=== PATIENT | female | born 1965 | race Caucasian/White ===

== ENCOUNTER → 2024-03-17 11:14 | Outpatient (REF) | payer OTHER, SELFPAY | LOC: HWWDC 11:14 | PROVIDERS: ATTENDING PHYSICIAN Family Medicine | DX: Z12.31 Encounter for screening mammogram for malignant neoplasm of breast (principal) | CPT/HCPCS: 77063; 77067 ==

== ENCOUNTER 2024-09-22 05:49 | Emergency (ER) | payer OTHER, SELFPAY ==
[2024-09-22 05:51] VITALS: BP 143/98
[2024-09-22] MEDS: DILAUDID 0.5 MG IV (06:29)
[2024-09-22] MEDS: VALIUM INJECTION 5 MG IV (06:35)
--- NOTE | 2024-09-22 06:49 | ED.GENMED ---
History of Present Illness
General
Chief Complaint: Back Pain
Source: patient and spouse
Exam Limitations: none
Time Seen by Provider: 09/22/24 06:18
Nursing documentation reviewed up to this point in time: agreed with
History of Present Illness
History of Present Illness:
The patient is a 59-year-old female who comes in with complaints of severe spasming in her left upper back. Patient reports that she experienced it in the past but it was brief and went away. Patient reports she has been dealing with this for 1
week and cannot sleep due to the pain. Patient is pacing around the ED screaming in pain. She denies cough and shortness of breath. 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
Patient reports she has been taking Tylenol, tramadol and prednisone without relief. Patient reports it feels like severe muscle spasm
Past History
Past History
ED Past Medical History: None
ED Past Surgical History: None
Social History
Tobacco: Non-smoker
Alcohol: Other
Drug: None
Personal:
Living: with family
Employment: Other
Family History
Family History: Other
Review of Systems
Review of Systems
Allergies reviewed?: Yes
All Other Systems: ROS reviewed and negative except as documented in HPI and ROS
Constitutional: Reports no symptoms
EENT: Reports no symptoms
Respiratory: Reports no symptoms
Cardiac: Reports no symptoms
ABD/GI: Reports no symptoms
: Reports no symptoms
Musculoskeletal: Reports muscle pain and back pain
Neurological: Reports no symptoms
Endocrine: Reports no symptoms
Hematologic/Lymphatic: Reports no symptoms
Psychiatric: Reports no symptoms
Phy Exam
Physical Exam
Physical Exam:
Physical Exam
General: Patient is pacing around room, standing and holding her left upper back, screaming out in pain
Neck: supple. no meningeal signs. normal psoterior pharynx
Heart: s1/s2 regular rate and rhythm, no murmur. equal radial pulses.
Lungs: no acute respiratory distress. clear bilaterally. No vertebral spine tenderness.
Abdomen: normal bowel sounds. not tender. no CVAT
Neuro: alert and oriented. no focal neurological deficits
Skin: no rash
Psychiatric: well kept. interactive and cooperative
Extremities: no edema. no calf tenderness. negative homans. good distal pulses
Course
Orders/Labs/Results
Orders:
Orders
09/22/24 06:00
Complete Blood Count/With Diff Urgent
Comprehensive Metabolic Panel Urgent
Lipase Urgent
09/22/24 06:23
diazePAM [Valium Injection] 5 mg IV NOW STA
09/22/24 06:24
HYDROmorphone [Dilaudid] 0.5 mg IV NOW STA
09/22/24 06:26
CT Chest PE Study Urgent
Comment:
Reason For Exam: severe L scapular pain
09/22/24 08:02
Diazepam [Valium] 5 mg PO NOW STA
Ketorolac [Toradol] 30 mg IV NOW STA
09/22/24 09:35
Oxycodone [Roxicodone] 5 mg PO NOW STA
Abnormal Lab Results
09/22/24
06:00
WBC 11.9 H 10^3/uL
(4.8-10.8)
MCH 31.7 H pg
(27.0-31.0)
MPV 10.8 H fL
(7.4-10.4)
Absolute Lymphs (auto) 4.3 H 10^3/uL
(1.2-3.4)
Absolute Monos (auto) 1.0 H 10^3/uL
(0.1-0.6)
Glucose 108 H mg/dl
(70-99)
Albumin 5.4 H g/dl
(3.5-5.0)
09/22/24 06:00
09/22/24 06:00
Vital Signs
Initial and Last Documented VS:
Initial Vital Signs
Temp Pulse Resp BP Pulse Ox
97.4 F 70 24 143/98 98
09/22/24 05:51 09/22/24 05:51 09/22/24 05:51 09/22/24 05:51 09/22/24 05:51
Last Documented Vital Signs
Temp Pulse Resp BP Pulse Ox
97.4 F 84 16 105/63 100
09/22/24 05:51 09/22/24 12:25 09/22/24 12:25 09/22/24 12:25 09/22/24 12:25
MDM/Problems Addressed
Differential Diagnosis Includes:
Muscle spasm, aortic dissection, PE, pneumonia
MDM/Problems Addressed:
Patient presents with acute severe left upper back pain
Acute Exacerbation and/or Progression of Chronic Illness:
Patient is acutely hypertensive, likely due to pain
Acute Exacerbation and/or Progression of Chronic Illness: HTN
*Radiology
Radiology exam reviewed: radiology read reviewed
*Pulse Oximetry
Patient hypoxic: no
*Critical Care Note
Total Time (30-74mins, 75-104mins- exclusive of procedures): Not Applicable
Data Reviewed
Source: patient
Patient Management
Social determinants of health affecting care: Living situation and Strong social support
Escalation/DeEscalation of care consider admission/obs:
Patient still feels moderate discomfort but is able to get up and walk around. Patient requesting prescription for oxycodone and Valium. I told patient we will give them to her for a few days. Patient also encouraged to use Motrin.
ED Attending Note
-
Portions of this chart may have been created with voice recognition software.� Occasional wrong word or��sound alike� substitutions may have occurred due to the inherent limitations of voice recognition software.
Discharge Plan
Departure
Patient Disposition: Home (Routine Discharge)
Date of Disposition: 09/22/24
Time of Disposition: 12:06
Patient with high blood pressure during this ER visit?: No
Condition: Good
Covid-19: Not Applicable
Discharge Problem:
Upper back pain on left side
Instructions: Upper Back Pain (DC)
Prescriptions:
New
oxycodone 5 mg tablet
5 mg PO TID PRN (Reason: Pain) Qty: 10 0RF
diazepam [Valium] 5 mg tablet
5 mg PO BID PRN (Reason: muscle spasm) Qty: 12 0RF
No Action
silver sulfadiazine [SSD] 400 GRAM cream
1 applic topical DAILY Qty: 1 0RF
oxycodone-acetaminophen 5 MG/325 MG tablet
1 tab PO Q4HPRN PRN (Reason: pain) Qty: 12 0RF
Referrals:
Wilmer Mayen MD [Active] - (Call today for next open appointment)
Alison Ortiz MD [Family Provider] -
Activity Restrictions/Additional Instructions:
Take 600 mg of Advil/Motrin with food every 6-8 hours for pain. If the pain becomes severe, you can also take the Valium and oxycodone along with the Advil. Please do not drink alcohol or drive while using the Valium and oxycodone.
Interventions
Interventions:
*Risk Screen - Suicide Last Done: 09/22/24 05:56
*General Assessment Last Done: 09/22/24 05:56
*Neglect/Abuse Screening Last Done: 09/22/24 05:56
ED- Fall Risk Assessment Last Done: 09/22/24 06:36
*ED COVID-19 Vaccine History Last Done: 09/22/24 05:55
*Nursing Disposition Last Done: 09/22/24 12:25
ED-Musculoskeletal Assessment Last Done: 09/22/24 06:36
Discharge Date and Time
Discharge Date/Time: 09/22/24 12:30
Print Language: NEPALESE
[2024-09-22 07:08] LABS: % Basophils 0.6 % (0-2); % Eosinophils 1.1 % (0-6); % Immature Granulocytes 0.3 % (0-0.5); % Lymphocytes 36.3 % (20.5-51.1); % Monocytes 8.5 % (1.7-9.3); % Neutrophils 53.2 % (42.2-75.2); Absolute Basophils 0.1 10^3/uL (0-0.2); Absolute Eosinophils 0.1 10^3/uL (0-0.7); Absolute Lymphocytes 4.3 10^3/uL (1.2-3.4); Absolute Neutrophils 6.3 10^3/uL (1.4-6.5); Hematocrit 43.5 % (37.0-47.0); Hemoglobin 14.7 g/dL (12.0-16.0); Mean Corp Hgb Conc. 33.8 g/dL (33.0-37.0); Mean Corpuscular Hgb 31.7 pg (27.0-31.0); Mean Platelet Volume 10.8 fL (7.4-10.4); Nucleated Red Blood Cells % 0 %; Platelet Count 300 10^3/uL (130-400); Red Blood Cell Count 4.63 10^6/uL (4.20-5.40); Red Cell Dist. Width 11.9 % (11.5-14.5); White Blood Cell Count 11.9 10^3/uL (4.8-10.8)
[2024-09-22 07:22] LABS: ALT (SGPT) 27 U/L (0-35); AST (SGOT) 27 U/L (14-36); Albumin 5.4 g/dl (3.5-5.0); Alkaline Phosphatase 74 U/L (38-126); Blood Urea Nitrogen 15 mg/dl (7-17); Calcium 9.6 mg/dl (8.4-10.2); Carbon Dioxide 25 mmol/L (22-30); Chloride 98 mmol/L (98-107); Glucose 108 mg/dl (70-99); Lipase 80 U/L (23-300); Potassium 4.3 mmol/L (3.5-5.1); Sodium 137 mmol/L (135-145); Total Bilirubin 0.5 mg/dl (0.2-1.3); Total Protein 7.6 g/dl (6.3-8.2); eGFR > 60.00
[2024-09-22] MEDS: VALIUM 5 MG PO (08:05)
[2024-09-22] MEDS: TORADOL 30 MG IV (08:06)
[2024-09-22 08:11] VITALS: BP 96/50; BMI 21.9
[2024-09-22] MEDS: ROXICODONE 5 MG PO (10:02)
[2024-09-22 12:25] VITALS: BP 105/63
--- NOTE | 2024-09-22 12:28 | EDRN ---
Reviewed discharge instructions with patient. Verbalized understanding. Ambulated with steady gait to the lobby.
== END 2024-09-22 12:30 | disposition home or self-care (01) ==
LOC: EMR 05:49
PROVIDERS: EMERGENCY PHYSICIAN Emergency Medicine; FAMILY PHYSICIAN Family Medicine
DX: M54.6 Pain in thoracic spine (principal); I10 Essential (primary) hypertension
CPT/HCPCS: 96374; 96375; 99284; 71275; 80053; 83690; 85025; Q9967

== ENCOUNTER → 2024-10-09 19:37 | Outpatient (REF) | payer OTHER, SELFPAY | LOC: MRI 19:37 | PROVIDERS: ATTENDING PHYSICIAN Family Medicine | DX: M62.830 Muscle spasm of back (principal); M54.14 Radiculopathy, thoracic region; S24.109S Unspecified injury at unspecified level of thoracic spinal cord, sequela | CPT/HCPCS: 72146 ==

== ENCOUNTER → 2025-04-21 09:20 | Outpatient (REF) | payer OTHER, SELFPAY | LOC: HWWDC 09:20 | PROVIDERS: ATTENDING PHYSICIAN Family Medicine | DX: M85.80 Other specified disorders of bone density and structure, unspecified site (principal); Z12.31 Encounter for screening mammogram for malignant neoplasm of breast | CPT/HCPCS: 77063; 77067; 77080 ==